=== PATIENT | female | born 1990 | race Caucasian/White ===

== ENCOUNTER 2019-04-17 08:39 | Emergency (ER) | payer OTHER, SELFPAY ==
[2019-04-17 08:45] VITALS: BP 130/78; PULSE 93; RESP 18; TEMP 37.1; O2SAT 96
--- NOTE | 2019-04-17 08:50 | ED.GENADUL_ITS ---
Discharge Plan Disposition Patient Disposition: HOME Condition: Fair Discharge Details Chief Complaint: RespSymp Clinical Impression: Bronchitis, URI (upper respiratory infection) Primary Care Provider: Portia Cao ED Provider: Shannan Carlin Home Meds and New Rx's Prescriptions: New benzonatate [Tessalon Perles] 100 mg capsule 100 mg PO TID PRN (Reason: cough) Qty: 20 RF: 0 Discharge Instructions Instructions: Albuterol (By breathing), Acute Bronchitis (ED) Additional Instructions: Encourage hydration. Tylenol and ibuprofen as needed for discomfort or fevers. You may use the Tessalon Perles as prescribed to help with cough. Please use the albuterol inhaler, 2 puffs every 4 hours as needed for shortness of breath no wheezing or cough. If the symptoms persist by the end of the week and please be evaluated by primary care once again. If you develop fevers, difficulty breathing, increased shortness of breath or the new/worsening symptoms please seek care urgently once again. Referrals: Portia Cao MD [Primary Care Provider] - Medical Decision Making Patient is a pleasant 28-year-old female who presents today with chief complaint of URI. She reports that 3 days ago she began having symptoms of congestion, cough, sore throat, nasal congestion. She is endorsing some wheezing and shortness of breath which she associates with the cough. Patient reports that this feels like when she has had bronchitis historically. She does report that she was around a person with known bronchitis recently. Denies any fevers or chills. Is feeling generally fatigued and has generalized body aches. On exam, she has some mild erythema posterior oropharynx. No signs of respiratory distress. She has a scattered expiratory wheezes on exam. Patient is declining chest x-ray. We discussed that her symptoms and history are most concerning for bronchitis. We discussed antibiotic usage and have decided to hold off at this time. However, she did respond well to an albuterol inhaler as directed and will prescribe abuse, spacer and instructions on how to use this to be completed by nursing staff. Patient will be prescribed Tessalon Perles to help with symptomatic management. We discussed home and [id number] remedies to help with her symptomatic management. She was given return precautions. She will follow-up with primary care in 1 week if not improving. HPI General Mode of arrival: ambulatory . Date/Time Provider Initiated Documentation: 04/17/19 08:50 . Limitations to Documentation: no limitations . Information obtained by: patient and RN notes reviewed . History of Present Illness 28 year old F presents to the emergency department with the chief complaint of URI with cough, congestion, sore throat, described as moderate and similar to prior episodes (feels like when I had bronchitis before), with intensity rated at 2 (generalized achiness). Quality is described as aching, Patient started experiencing this day(s) (3) and it has been constant. No relieving factors improve symptom(s), No exacerbating factors reported . Patient notes cough and shortness of breath; denies chest pain, diaphoresis, fever/chills, headaches, loss of appetite, nausea/vomiting, rash and weakness. Patient did receive the following treatments prior to arrival, NSAID Related Data Home Medications Medication Instructions Recorded Confirmed benzonatate [Tessalon Perles] 100 mg PO TID PRN #20 cap 04/17/19 Previous Rx's Medication Instructions Recorded benzonatate [Tessalon Perles] 100 mg PO TID PRN #20 cap 04/17/19 Allergies Allergy/AdvReac Type Severity Reaction Status Date / Time amoxicillin trihydrate Allergy Mild Skin Rash Unverified 04/17/19 08:47 [From Augmentin] potassium clavulanate Allergy Mild Skin Rash Unverified 04/17/19 08:47 [From Augmentin] Penicillins Allergy Unknown Skin Rash Unverified 04/17/19 08:47 meperidine HCl [From Demerol] AdvReac Mild Psychosis Unverified 04/17/19 08:47 General Stated Complaint: RespSymp CHRIS: 4 Review of Systems Constitutional Constitutional: Reports as per HPI, Denies chills, Reports fatigue, Denies fever(s) and Denies headache(s) Eyes Eyes: Reports as per HPI, Denies eye discharge and Denies irritation ENT Ears, Nose, Mouth, and Throat: Reports as per HPI and Denies headache(s) Cardiovascular Cardiovascular: Reports as per HPI, Denies chest pain and Reports dyspnea (associated with cough and when feeling wheezing) Respiratory Respiratory: Reports as per HPI, Reports cough, Denies hemoptysis, Reports excessive phlegm production, Denies pain on inspiration, Denies pain with cough, Reports dyspnea (associated with cough and when feeling wheezing) and Reports wheezing Gastrointestinal Gastrointestinal: Reports as per HPI, Denies abdominal pain, Denies change in bowel habits, Denies nausea and Denies vomiting Integumentary/Breasts Skin/Breast: Reports as per HPI and Denies rash Neurologic Neurologic: Reports as per HPI and Denies headache(s) Endocrine Endocrine: Reports fatigue Allergic/Immunologic Allergic/Immunologic: Reports wheezing [facility] Medical History Female pelvic inflammatory disease (05/20/13) Admitted for IV abx and oupt Rx. Neg GC/CT. 07/05/13 TOA Rx with laparotomy and removal of R tube and ovary. PO abx x2w. Tobacco use disorder Surgical History Oophrectomy, Right (07/05/13) laparotomy for TOA. R tube and ovary removed. significant distortion of anatomy from inflammation. Social History Smoking/Tobacco Use Status: Former Tobacco Use Drug use: Never Exam Const General: cooperative, healthy appearing, comfortable, no acute distress, well developed and well groomed Nutritional Appearance: average body habitus and well nourished Orientation: alert and awake [facility] Head: normal to inspection, normocephalic and atraumatic Ears: hearing grossly normal bilaterally, external ears normal and TM's normal bilaterally General nose exam: external nose normal and nares normal Face and sinus: normal facial exam, sinuses nontender and face symmetric Mouth: oral mucosae normal, lip normal, tongue normal, oropharynx normal and moist mucous membranes Teeth and gingiva: dentition normal Throat: posterior oropharynx abnormal (mild erythema), tonsils normal and uvula midline Eyes General: appearance normal, both eyes and all related structures Neck Neck: normal visual inspection, full ROM, no lymphadenopathy and no meningeal signs Resp Effort & Inspection: normal respiratory effort, able to speak in complete sentences, no respiratory distress, no stridor, not tachypneic and no use of accessory muscles Auscultation: no crackles, no rales, no rhonchi and wheezes expiratory wheezes and scattered wheezes Cardio Rate: regular rate Rhythm: regular rhythm Heart Sounds: S1 normal and S2 normal Skin General skin exam: no rashes or lesions noted Neuro General: alert and awake Cognition: normal cognition Speech: speech normal Gait: normal gait Psych Appearance: grossly normal and well kempt Mental Status: mental status grossly normal Speech and Movement: speech and movement normal Course Vital Signs Vital signs: Vital Signs Temperature 37.1 C 04/17/19 08:45 Pulse 93 H 04/17/19 08:45 Respiratory Rate 18 04/17/19 08:45 Blood Pressure 130/78 04/17/19 08:45 Pulse Oximetry 96 04/17/19 08:45 Temperature 37.1 C 04/17/19 08:45 Temperature Source Skin 04/17/19 08:45 Pulse 93 H 04/17/19 08:45 Respiratory Rate 18 04/17/19 08:45 Respiratory Effort 04/17/19 08:48 Blood Pressure 130/78 04/17/19 08:45 Pulse Oximetry 96 04/17/19 08:45 Oxygen Delivery Method Room Air 04/17/19 08:45 Oxygen Flow Rate 0 04/17/19 08:45 Pain Level 2 04/17/19 08:45
[2019-04-17] MEDS: Inhaler, Assist Device 1 EACH MC (09:04)
[2019-04-17] MEDS: Albuterol HFA 8 GM 60 PUFF INH IH (09:05)
== END 2019-04-17 09:12 | disposition home or self-care (01) ==
LOC: ER 09:09
PROVIDERS: Emergency Provider Physician Assistant; PCP Family Medicine
DX: J20.9 Acute bronchitis, unspecified (principal); J06.9 Acute upper respiratory infection, unspecified; Z53.29 Procedure and treatment not carried out because of patient's decision for other reasons
CPT/HCPCS: 99283

== ENCOUNTER 2019-08-12 08:16 | Outpatient (REF) | payer OTHER, SELFPAY ==
[2019-08-12 13:03] LABS: Anion Gap 10.8 mmol/L (3-11); BUN 11 mg/dL (7-18); CO2 26.2 mmol/L (21.0-32.0); CREATININE 0.81 mg/dL (0.55-1.02); Calcium 8.7 mg/dL (8.5-10.1); Chloride 103 mmol/L (98-107); Glucose 104 mg/dL (74-106); Potassium 3.9 mmol/L (3.5-5.1); Sodium 140 mmol/L (136-145); TSH (W/Ref FT4) 2.88 uIU/mL (0.36-3.74)
== END 2019-08-12 08:36 ==
LOC: NCHCN 08:16
PROVIDERS: PCP Family Medicine; Visit Provider Family Medicine
DX: Z00.00 Encounter for general adult medical examination without abnormal findings (principal); Z13.29 Encounter for screening for other suspected endocrine disorder; Z13.228 Encounter for screening for other metabolic disorders
CPT/HCPCS: 80048; 84443

== ENCOUNTER 2019-11-22 22:31 | Outpatient (REF) | payer OTHER, SELFPAY ==
[2019-11-24 10:06] LABS: SARS-CoV-2 RNA Undetected (Undetected); SARS-CoV-2 Specimen Source Nasopharynx
== END 2019-11-22 22:51 ==
LOC: NCHCN 22:31
PROVIDERS: PCP Family Medicine; Visit Provider Nurse Practitioner Family
DX: Z20.828 Contact with and (suspected) exposure to other viral communicable diseases (principal)
CPT/HCPCS: U0003

== ENCOUNTER 2020-03-07 17:37 | Outpatient (REF) | payer OTHER, SELFPAY ==
[2020-03-10 20:54] LABS: COVID-19 RT-PCR Result NEGATIVE (Negative)
== END 2020-03-07 17:57 ==
LOC: NCHCN 17:37
PROVIDERS: PCP Family Medicine; Visit Provider Nurse Practitioner Family
DX: R05 Cough (principal)
CPT/HCPCS: U0003

== ENCOUNTER 2020-03-24 02:22 | Outpatient (CLI) | payer OTHER, SELFPAY ==
[2020-03-25 12:44] LABS: COVID-19 RT-PCR Result NEGATIVE (Negative)
== END 2020-03-24 02:42 ==
PROVIDERS: PCP Family Medicine; Visit Provider Family Medicine
DX: Z11.59 Encounter for screening for other viral diseases (principal); Z01.811 Encounter for preprocedural respiratory examination
CPT/HCPCS: U0003

== ENCOUNTER 2020-03-27 02:23 | Outpatient (CLI) | payer OTHER, SELFPAY ==
[2020-03-27] MEDS: Albuterol HFA 18 GM 200 PUFF INH IH (13:45)
[2020-03-27] MEDS: Inhaler, Assist Device 1 EACH MC (13:45)
--- NOTE | 2020-03-29 08:09 | W.PFT ---
Date of service: 03/27/20 Time of Service: 01:04 Pulmonary Function Test Result Interpretation Spirometry: Shows mild obstructive airways disease with some but not significant bronchodilator response Lung Volumes: No evidence of restriction Diffusion Capacity: Normal Airway Pressure: Normal Impression Mild obstructive airways disease with some but not significant bronchodilator response Clinical Correlation therefore is recommended.
== END 2020-03-27 02:43 ==
PROVIDERS: PCP Family Medicine; Visit Provider Family Medicine
DX: R06.2 Wheezing (principal); F17.200 Nicotine dependence, unspecified, uncomplicated
CPT/HCPCS: 94060; 94726; 94729

== ENCOUNTER 2020-07-21 02:07 | Outpatient (CLI) | payer OTHER, SELFPAY ==
[2020-07-22 13:55] LABS: COVID-19 RT-PCR UVMMC Result Negative (Negative)
== END 2020-07-21 02:08 | disposition home or self-care (01) ==
LOC: LBO 02:07
PROVIDERS: PCP Family Medicine; Visit Provider Surgery
DX: Z20.828 Contact with and (suspected) exposure to other viral communicable diseases (principal); Z01.818 Encounter for other preprocedural examination
CPT/HCPCS: U0003

== ENCOUNTER 2020-07-25 11:14 | Day surgery (SDC) | payer OTHER, SELFPAY ==
[2020-07-25 11:55] VITALS: BP 125/65; PULSE 79; RESP 16; TEMP 36.2; O2SAT 97
[2020-07-25] MEDS: Lactated Ringers 1,000 ML 80 ML IV (12:05)
[2020-07-25] MEDS: Bupivacaine LIPOSOME/PF 133 MG/10 ML VIAL IJ (14:39)
[2020-07-25] MEDS: Bupivacaine 0.25% Pres-Free 30 ML VIAL (14:39)
--- NOTE | 2020-07-25 14:46 | W.PM.DSUDISC ---
Discharge Plan Disposition Patient Disposition: HOME Condition: Good Discharge Details Reason For Visit: removal contraceptive device Attending Provider: Darby Collins Primary Care Provider: Devin Escamilla Home Meds and New Rx's Prescriptions: New ibuprofen 600 mg tablet 600 mg PO Q6H PRNQty: 60 RF: 0 Continued cetirizine [Zyrtec] 10 mg tablet 10 mg PO DAILY PRNRF: 0 budesonide-formoterol [Symbicort] 80-4.5 mcg/actuation HFA aerosol inhaler 2 puff inhalation BID RF: 0 Nexplanon 68 mg implant 1 implant subdermal ONCE RF: 0 ibuprofen 400 mg Tablet RF: 0 Discharge Instructions Additional Instructions: Caring for Your Incision You?ll need to help care for your incision after surgery and certain medical procedures. To close an incision, your healthcare provider used stitches (sutures), surgical delon, or surgical skin glue. Follow the tips on this sheet to help stop bleeding, speed healing, and prevent infection of your incision. Pain Control Use ice! Ice keeps the swelling down and swelling is what causes pain. Never apply ice directly to the skin. Wrap it in a towel or cloth. Apply ice 20 minutes on and 20 minutes off for pain control. Use as needed. Take tylenol 500 mg by mouth with food every 4 hours as needed for pain. Or ibuprofen 600 mg by mouth with food every 6 hours as needed for pain. Do not take tylenol if you have a history of heavy drinking , hepatits C or liver problems. Do not take ibuprofen if you have a history of stomach ulcers/problems, bleeding problem or kidney issues. Types of incision closures ? Surgical stitches (sutures) are placed by sewing the edges of an incision together with surgical thread. Sutures are either absorbable or non-absorbable. Absorbable sutures break down in the body over time. Non-absorbable sutures need to be removed. ? Home care ? Always wash your hands before touching your incision. ? Keep the incision clean, dry, and out of water, keep the incision out of water. ? Do not to pick at the scabs. Scabs help protect the wound. ? You can take a shower in 24 hours and wash the incision with soap and water. Pat dry/don?t scrub. It?s OK to wash around the incision. But don?t spray water directly on it. ? Pat stitches dry if they get wet. Don't rub. ? Check the incision site daily for pain, redness, drainage, swelling, or separation of the incision edges. ? If there is a bandage (dressing) over the incision, change this every 24 hours as instructed by your provider. Using clean hands change the dressing as directed by your healthcare provider. Always wash your hands before changing your dressing. ? Make sure any clothing that touches the incision is loose-fitting. This will prevent rubbing. If the incision is on the head, keep your child from wearing caps or other head coverings. These may rub against the incision. ? Try to avoid from rough play, contact sports, or physical activities for two weeks. This can put you at risk of opening the incision. ? Make sure you avoid doing things that could cause dirt or sweat to get in or on the incision. As your incision heals, the skin may appear pink or red. It may also feel slightly bumpy or raised. This is called a healing ridge. Over time, the color should fade and the raised skin will become less noticeable. Follow-up care The sutures will dissolve. The purple skin glue will dissolve in 10-14 days. When to seek medical care Call your healthcare provider right away if you have any of these: ? More pain, redness, swelling, bleeding, or foul-smelling discharge around the incision area ? Fever of 101?F (38.3?C) or higher, or as directed by your child's healthcare provider ? Shaking chills ? Vomiting or nausea that doesn?t go away ? Numbness, coldness, or tingling around the incision area, or changes in skin color ? Opening of the sutures or wound Stitches or delon come apart or fall out or surgical tape falls off before 7 days, or as directed by your healthcare provider [facility] if any problems [phone] DS: Diagnosis Discharge Diagnosis (1) Encounter for removal of subdermal contraceptive implant: Status: Acute (2) Tobacco use disorder: Status: None (3) Asthma: Status: Chronic
--- NOTE | 2020-07-25 14:51 | ROE_ITS ---
Date of service: 07/25/20 Time of Service: 14:51 Operative Note Operative Note DATE OF PROCEDURE: 07/25/20 PRE-OP DIAGNOSIS: Removal of implanted control PROCEDURE: Excision of implanted control ANESTHESIA TYPE: Local By Surgeon and MAC Refer to Anesthesia Record ESTIMATED BLOOD LOSS: 1 PATHOLOGY: none sent Patient was transported to: same day Procedure Description: Amber is here today for removal of implanted control in her left upper arm. It is localized by ultrasound. She does not require antibiotics. Informed consent is obtained explaining risks and benefits of procedure including not limited to: Bleeding, infection, pneumonia, blood clots, complications of anesthesia, scarring, and inability to locate the the device. She was scanned and marked in preop. She is brought to the operative room suite and placed in supine position with the arm abducted. Timeout is performed. Is prepped and draped in the usual sterile fashion with a Betadine soap scrub solution. 10 cc of quarter percent Marcaine plain is used for local anesthetization. Ultrasound is used to localize the object. 1/4 inch incision is made with #15 blade vertically. The device is then located and removed. Pressure is held. No bleeding is noted. The incision is closed with subcutaneous 4-0 Monocryl. Skin glue was applied. Patient tolerated procedure well transferred recovery room stable condition. Patient will follow up with [facility] for ongoing fertility
[2020-07-25] MEDS: Ketorolac 30 MG/ML VIAL IVP (14:58)
[2020-07-25 15:13] VITALS: BP 105/62; PULSE 80; RESP 20; TEMP 36.3; O2SAT 98
== END 2020-07-25 16:02 | disposition home or self-care (01) ==
PROVIDERS: PCP Family Medicine; Visit Provider Surgery
PROC: (CPT 36590; principal; 2020-07-25 13:30)
DX: Z30.46 Encounter for surveillance of implantable subdermal contraceptive (principal); J45.909 Unspecified asthma, uncomplicated; F17.210 Nicotine dependence, cigarettes, uncomplicated
CPT/HCPCS: 11982; 81025; J1885; J2001; J2250; J2405; J2704

== ENCOUNTER 2020-12-16 09:30 | Outpatient (REF) | payer OTHER, SELFPAY ==
[2020-12-16 09:39] LABS: Source Nasal/Nares
[2020-12-16 10:32] LABS: COVID-19 PCR Negative (Negative)
== END 2020-12-16 09:31 | disposition home or self-care (01) ==
LOC: LBN 09:30
PROVIDERS: PCP Family Medicine; Visit Provider Physician Assistant Medical
DX: Z20.822 Contact with and (suspected) exposure to COVID-19 (principal)
CPT/HCPCS: 87635

== ENCOUNTER 2020-12-25 09:28 | Outpatient (REF) | payer OTHER, SELFPAY ==
[2020-12-26 11:29] LABS: COVID-19 RT-PCR UVMMC Result Negative (Negative)
== END 2020-12-25 09:29 | disposition home or self-care (01) ==
LOC: LBN 09:28
PROVIDERS: PCP Family Medicine; Visit Provider Nurse Practitioner Family
DX: Z20.822 Contact with and (suspected) exposure to COVID-19 (principal)
CPT/HCPCS: U0003